=== PATIENT | male | born 1975 | race American Indian/Alaskan Native ===

== ENCOUNTER 2018-11-14 15:36 | Emergency (ER) | payer OTHER ==
--- NOTE | 2018-11-14 16:33 | XRay Report ---
CHEST 2 VIEWS INDICATION / CLINICAL INFORMATION: Chest Pain. COMPARISON: None available. FINDINGS: SUPPORT DEVICES: None. HEART / MEDIASTINUM: No significant abnormality. LUNGS / PLEURA: No significant pulmonary or pleural abnormality. No pneumothorax. ADDITIONAL FINDINGS: No significant additional findings. IMPRESSION: 1. No acute findings. Signer Name: Alfred Dumont MD Signed: 11/14/2018 4:29 PM Workstation Name: [id number]
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
[2018-11-14 19:33] VITALS: BP 133/93
== END 2018-11-14 19:32 | disposition home or self-care (01) ==
LOC: ED 15:36
DX: R06.2 Wheezing (principal); F17.200 Nicotine dependence, unspecified, uncomplicated; F12.90 Cannabis use, unspecified, uncomplicated; Z98.890 Other specified postprocedural states; Z79.899 Other long term (current) drug therapy
CPT/HCPCS: 71046; 93005; 93010; 99283

== ENCOUNTER 2019-04-05 09:11 | Outpatient (CLI) | payer OTHER | END 2019-04-05 09:12 | disposition home or self-care (01) | LOC: PF 09:11 | PROVIDERS: ATTEND Internal Medicine | DX: J98.8 Other specified respiratory disorders (principal); F41.9 Anxiety disorder, unspecified; F20.9 Schizophrenia, unspecified; F32.9 Major depressive disorder, single episode, unspecified; R11.0 Nausea | CPT/HCPCS: 94010; 94729 ==

== ENCOUNTER 2021-03-23 11:43 | Outpatient (CLI) | payer OTHER ==
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
== END 2021-03-23 11:44 | disposition home or self-care (01) ==
LOC: XRAY 11:43
PROVIDERS: ATTEND Internal Medicine
DX: Z02.71 Encounter for disability determination (principal)
CPT/HCPCS: 72100